=== PATIENT | female | born 1985 | race Caucasian/White ===

== ENCOUNTER 2022-06-21 15:16 | Emergency (ER) | payer OTHER ==
[2022-06-21 15:51] LABS: HEMOGLOBIN 12.8 gm/dl (12.3-15.3); RED BLOOD COUNT 4.37 M/UL (4.00-5.10); WHITE BLOOD COUNT 8.6 K/UL (4.5-11.0)
[2022-06-21 16:27] LABS: BUN/CREATININE RATIO 16 (0-10)
[2022-06-21] MEDS ORDERED: ONDANSETRON ODT4 MG SL (18:54)
[2022-06-21] MEDS ORDERED: IBUPROFEN600 MG PO (18:54)
[2022-06-21] MEDS ORDERED: PYRIDIUM200 MG PO (18:54)
[2022-06-21] MEDS ORDERED: CEFUROXIME500 MG PO (18:54)
== END 2022-06-21 19:14 | disposition home or self-care (01) ==
LOC: ER1 15:16
PROVIDERS: Emergency Medicine
DX: R10.9 Unspecified abdominal pain (principal); F17.200 Nicotine dependence, unspecified, uncomplicated; Z88.0 Allergy status to penicillin; Z88.2 Allergy status to sulfonamides
CPT/HCPCS: 80053; 81001; 83690; 84703; 85025; 87077; 87086; 87186; 96374; 96375; 99284; J1335; J1885; J2405